=== PATIENT | male | born 1980 | race Caucasian/White ===

== ENCOUNTER 2017-08-26 15:05 | Emergency (ER) | payer OTHER ==
[2017-08-26 15:19] VITALS: RESP 16
[2017-08-26] MEDS ORDERED: TDAP ADULT 0.5 ML INJ (BOOSTRIX) IM ONE (15:30)
--- NOTE | 2017-08-26 15:43 | EDPHY ---
General - History Smoking Status: Former smoker Time Seen by Provider: 08/26/17 15:35 Narrative: CHIEF COMPLAINT: Nail gun to left forearm HISTORY OF PRESENT ILLNESS: Patient complains of nail gun injury to the left forearm. This is a work related injury. He says he was working with a nail gun just prior to arrival when the nail ricocheted off of a metal stud. He thinks that large portion of the nail is imbedded in his left forearm on the anterior aspect. There is a 2nd area of foreign body that is very small portion of metal. There is minimal pain with movement at this time. No numbness or tingling. He describes very heavy blood flow earlier that has stopped with pressure. No numbness or tingling of the hand. No weakness of the hand. Minimal pain if he holds still. [id number] if he presses on the area or moves it. Tetanus is questionable. No other associated complaints or modifying factors. Right-hand dominant. REVIEW OF SYSTEMS: Ten systems reviewed and are negative unless otherwise noted in the HPI PCP: None SPECIALISTS: None PAST MEDICAL HISTORY: No medical history PAST SURGICAL HISTORY: No recent surgical history SOCIAL HISTORY: Nonsmoker. Occasional drug alcohol use. Works as a construction equipment operator. FAMILY HISTORY: noncontributory EXAMINATION General Appearance: Alert, no distress Head: normocephalic, atraumatic Eyes: Pupils equal and round, no conjunctival pallor or injection Respiratory: No retractions or distress Cardiovascular: Regular rate. Symmetric radial pulses 2+. Brisk cap refill of the left fingers. Normal Marshall test. Good signs of perfusion of the left hand. Gastrointestinal: Abdomen is soft and nontender Back: non-tender, no bony abnormalities Neurological: A&O, nonfocal, normal gait Skin: Warm and dry, no rash. There is palpable foreign body on the left proximal forearm that is punctate and without bleeding. There is a larger foreign body palpable in the left anterior forearm approximately 3-4 cm in length. There is a puncture adjacent to this that is not bleeding. There is no cyanosis or pallor Extremities: Mild tenderness in the area of suspected foreign body. There is no bony tenderness of the left upper extremity. Range of motion is fully intact and symmetric to the right. Psychiatric: Mood and affect normal DIFFERENTIAL DIAGNOSES: Including but not limited to foreign body, soft tissue foreign body, radial fracture, ulnar fracture, vascular injury MDM: 3:40 p.m. Acute foreign body to the left anterior forearm vomiting nails. He is neurovascular intact distal to this. He does have a palpable foreign body proximally and mid shaft of the left anterior forearm. No pulsatile bleeding. No sensory changes distally. Tetanus is currently being updated here. X-ray the form is pending. 5:00 p.m. Foreign body left anterior forearm that was verified by x-ray. These are measured as 1.5 x 2.5 x 2.4 mm and 2.7 x 6.3 x 6.7 mm. These have been removed successfully in completion. His wounds have been closed with Ethilon. The wounds were irrigated prior to this. He will be discharged home on antibiotic prophylaxis. We discussed wound care. We discussed signs and symptoms of infection that would warrant return to emergency department. We discussed rest for the rest of the day with non exertion of the left upper extremity. We discussed returning to this department in 7 days for removal of the stitches. He is discharged home stable condition. PROCEDURE: Foreign Body Removal Consent: Verbal Location: Left anterior forearm Complexity: Complex Anesthesia: Local per 1% lidocaine with epinephrine. 7 mL Irrigation: Extensive Procedure description: Following good anesthesia and time-out, the area was prepped in common sterile fashion. The area of insertion was bleeding but difficult hemostasis. This was nonpulsatile but steady, thus I closed this with 1 simple interrupted suture. Using sterile gloves I made a small, 1 cm incision over the direct area of foreign body. This was after palpating the foreign body and reviewing the x-ray. Was able to use blunt dissection down to the foreign body. This was removed using sterile forceps. Wound irrigated. Tolerated well. Two simple interrupted sutures placed to close the wounds. Tolerated well without complication. Suture/Staple material: 4-0 Ethilon, 1 simple interrupted suture in 2 locations Wound care: Routine as discussed Suture/Staple removal: 7 Days SUPERVISION: Patient was independently examined, but I discussed the case with my secondary supervising physician Dr. Sanchez ([facility] I did personally assist with the removal move all of the forearm foreign body. Patient tolerated the procedure well. (Herminio Sanchez) - Diagnostics Imaging Results: Imaging Impressions Forearm X-Ray 08/26/17 15:43 Impression: There are a couple of small metallic radiopaque foreign bodies projected over the proximal and mid-palmar forearm, as-detailed. - Objective Vital Signs: Initial Vital Signs Temperature (C) 37.3 C 08/26/17 15:17 Heart Rate 78 08/26/17 15:17 Respiratory Rate 16 08/26/17 15:17 Blood Pressure 149/99 H 08/26/17 15:17 O2 Sat (%) 97 08/26/17 15:17 O2 Delivery Mode Room Air Allergies/Adverse Reactions: No Known Allergies Allergy (Unverified 08/26/17 15:17) Home Medications: Medication Instructions Recorded Amoxicillin/Clavulanate Pot 875 mg PO BID #14 tab 08/26/17 [Augmentin 875 MG TAB (*)] Medications Given: Discontinued Medications Diphtheria/Tetanus/Acell Pertussis (Boostrix) 0.5 ml IM .ONCE ONE Stop: 08/26/17 15:31 Last Admin: 08/26/17 15:39 Dose: 0.5 ml Departure - Departure Disposition: Home, Routine, Self-Care Clinical Impression: Puncture wound Foreign body in left forearm Qualifiers: Encounter type: initial encounter Qualified Code(s): S50.852A - Superficial foreign body of left forearm, initial encounter Condition: Good Instructions: Soft Tissue Foreign Body (ED) Additional Instructions: 1. Antibiotic prophylactic prescription to completion 2. Ice and elevation often 3. Ibuprofen 400 mg every 6 hr as needed 4. Suture removal here in this emergency department in 7 days. You do not need an appointment for this 5. ED precautions as discussed Referrals: NONE *PRIMARY CARE P,. [Primary Care Provider] - As per Instructions Prescriptions: Amoxicillin/Clavulanate Pot [Augmentin 875 MG TAB (*)] 875 mg PO BID #14 tab
[2017-08-26 17:26] VITALS: BP 132/88; PULSE 80; TEMP 98.2; O2SAT 95
== END 2017-08-26 17:27 | disposition home or self-care (01) ==
PROC: 0JCH0ZZ Extirpation of Matter from Left Lower Arm Subcutaneous Tissue and Fascia, Open Approach (ICD-10-PCS; principal; 2017-08-26)
DX: S50.852A Superficial foreign body of left forearm, initial encounter (principal); Z23 Encounter for immunization; Z87.891 Personal history of nicotine dependence; W29.4XXA Contact with nail gun, initial encounter; Y92.69 Other specified industrial and construction area as the place of occurrence of the external cause; Y99.0 Civilian activity done for income or pay; Y93.89 Activity, other specified